=== PATIENT | male | born 1985 | race Caucasian/White ===

== ENCOUNTER 2016-09-18 20:36 | Emergency (ER) | payer OTHER ==
[~2016-09-18] VITALS: Ht 170.2 cm; Wt 59.6 kg
[2016-09-18 20:40] VITALS: Ht 170.2 cm; Wt 59.6 kg
--- OUTSIDE RECORDS SUMMARY | 2016-09-18 20:40 | XMS REPORT ---
Author Author GENERATED, SYSTEM Organization Unknown Address Unknown Phone Unavailable Care Team Providers Care Senior Embedded Software Engineer Name Role Phone UNASSIGNED DOCTOR , DOCTOR PP [phone] Reason For Visit Chief Complaint CHEST PAIN Social History Functional Status Vital Signs Results Chemistry from 07/28/2014 11:55 PMSODIUM 139 MMOL/L (136-145 MMOL/L) POTASSIUM 3.4 MMOL/L L (3.5-5.1 MMOL/L) CHLORIDE 106 MMOL/L (98-107 MMOL/L) TCO2 26.8 MMOL/L (21.0-32.0 MMOL/L) ANION GAP 6.2 MMOL/L L (8.0-16.0 MMOL/L) BUN 13 MG/DL (7-18 MG/DL) CREATININE 0.71 MG/DL (0.63-1.13 MG/DL) BUN/CREATININE RATIO 18.3 H (9.1-17.0 ) GLUCOSE 87 MG/DL (65-99 MG/DL) GFR EST NON AFR IRISH >90 ML/MIN GFRA EST AFR AMER >90 ML/MIN CALCIUM 9.0 MG/DL (8.5-10.1 MG/DL) BILIRUBIN TOTAL 0.21 MG/DL (0.20-1.00 MG/DL) TOTAL PROTEIN 7.1 GM/DL (6.4-8.2 GM/DL) ALBUMIN 4.0 GM/DL (3.4-5.0 GM/DL) GLOBULIN 3.1 GM/DL (2.3-3.5 GM/DL) A/G RATIO 1.3 MG/DL L (1.5-2.2 MG/DL) ALK PHOS 60 U/L (46-116 U/L) ALT (SGPT) 27 U/L (12-78 U/L) AST (SGOT) 16 U/L (15-37 U/L) TROPONIN-I <0.04 (SEE BELOW ) Hematology from 07/28/2014 11:55 PMWBC 8.8 X10e3/UL (3.6-11.2 X10e3/UL) RBC 5.04 X10e6/UL (4.06-5.63 X10e6/UL) HEMOGLOBIN 15.3 G/DL (12.5-16.3 G/DL) HEMATOCRIT 45.2 % (36.7-47.1 %) MCV 89.7 FL (80.0-100.0 FL) MCH 30.2 PG (27.0-33.0 PG) MCHC 33.7 G/DL (32.0-36.0 G/DL) RDW 13.2 % (12.3-17.0 %) RDWSD 41.1 (37.1-47.8 ) PLATELET 205 X10e3/UL (159-386 X10e3/UL) MPV 9.5 FL (7.4-10.4 FL) AUTOMATED DIFF PERFORMED SEGS 53.1 % LYMPHOCYTES 28.7 % MONOCYTES 10.0 % EOSINOPHILS 6.9 % BASOPHILS 1.3 % ABSOLUTE NEUTROPHILS 4.70 X10e3/UL (1.80-7.80 X10e3/UL) ABSOLUTE LYMPHOCYTES 2.50 X10e3/UL (1.00-3.00 X10e3/UL) ABSOLUTE MONOCYTES 0.90 X10e3/UL (0.30-1.00 X10e3/UL) ABSOLUTE EOSINOPHILS 0.60 X10e3/UL H (0.00-0.50 X10e3/UL) ABSOLUTE BASOPHILS 0.10 X10e3/UL (0.00-0.20 X10e3/UL) Coagulation from 07/28/2014 11:55 PMD-DIMER 0.19 MG/L FEU (0.00-0.50 MG/L FEU) DX Radiology from 07/28/2014 11:22 PMCHEST 2 VIEWS (Preliminary Result)DATE OF EXAM: Jul 28 2014 11:33PM Proc: DG 0067 - CHEST 2 VIEWS CPT Code(s): 64151-; ; ; INDICATION / CLINICAL HISTORY: Chest pain. COMPARISON: None. FINDINGS: The cardiac silhouette and pulmonary vasculature are within normal limits. There are no acute infiltrates or effusions. IMPRESSION: No acute cardiopulmonary disease. Problems Encounter Diagnosis No relevant problems exist. Encounters Encounter Diagnosis No relevant problems exist. Plan of Care Procedures No relevant procedures performed. Immunizations No immunizations administered or ordered. Hospital Course Hospital Discharge Instructions Allergies, Adverse Reactions, Alerts * Latex Allergy has not been assessed. * IV Contrast Allergy has not been assessed. Medication Medication reconciliation has not been performed.
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
--- OUTSIDE RECORDS SUMMARY | 2016-09-18 20:40 | XMS REPORT ---
Author Author GENERATED, SYSTEM Organization Unknown Address Unknown Phone Unavailable Care Team Providers Care Sample Shoe Inspector And Reworker Name Role Phone UNASSIGNED DOCTORMD DOCTOR PP [phone] Reason For Visit Chief Complaint SUTURE REMOVAL,LEFT [...]
[2016-09-18] MEDS ORDERED: [UNRECOGNIZED DRUG - OTHER] PO (20:51)
[2016-09-18] MEDS ORDERED: NO ROUTINE MEDS (20:51)
[2016-09-18] MEDS ORDERED: IBUP-14 PO (20:52)
[2016-09-18] MEDS ORDERED: ONDANSETRON ODT 4 MG TAB PO ONE (21:45)
[2016-09-18] MEDS ORDERED: KETOROLAC 60mg/2ml INJECTION IM ONE (21:45)
[2016-09-18] MEDS ORDERED: ORPHENADRINE 60mg/2ml INJECTION IM ONE (21:45)
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
--- OUTSIDE RECORDS SUMMARY | 2016-09-18 21:54 | XMS REPORT ---
Author Author GENERATED, SYSTEM Organization Unknown Address Unknown Phone Unavailable Care Team Providers Care Nursing Agency Manager Name Role Phone UNASSIGNED DOCTORMD DOCTOR PP [phone] Reason For Visit Chief Complaint SUTURE REMOVAL,LEFT [...]
--- OUTSIDE RECORDS SUMMARY | 2016-09-18 21:54 | XMS REPORT ---
Author Author GENERATED, SYSTEM Organization Unknown Address Unknown Phone Unavailable Care Team Providers Care Fruit Harvester Machine Operator Name Role Phone UNASSIGNED DOCTOR , DOCTOR PP [phone] Reason For Visit Chief Complaint CHEST PAIN [...] MG/DL (65-99 MG/DL) GFR EST NON AFR [place] >90 ML/MIN GFRA EST AFR AMER >90 [...] 0067 - CHEST 2 VIEWS CPT Code(s): 60354-; ; ; INDICATION / CLINICAL HISTORY: Chest [...]
[2016-09-18] MEDS ORDERED: ONDA4TAB7 PO (22:51)
[2016-09-18] MEDS ORDERED: CYCL-375 PO (22:51)
--- NOTE | 2016-09-18 22:52 | NUR ---
PROVIDER MAY IN TO SEE PATIENT.
[2016-09-18 22:59] VITALS: BP 140/72; PULSE 92; RESP 16; TEMP 97.5; O2SAT 98
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
== END 2016-09-18 22:59 | disposition home or self-care (01) ==
LOC: ED 20:36
DX: S06.9X0A Unspecified intracranial injury without loss of consciousness, initial encounter (principal); F07.81 Postconcussional syndrome; V48.0XXA Car driver injured in noncollision transport accident in nontraffic accident, initial encounter; Y93.89 Activity, other specified; Y92.410 Unspecified street and highway as the place of occurrence of the external cause; Y99.8 Other external cause status
CPT/HCPCS: 70450; 72125; 96372; 99283; J1885; J2360